=== PATIENT | female | born 1945 | race Caucasian/White ===

== ENCOUNTER → 2016-12-21 | Outpatient (CLI) | payer OTHER, MEDICARE | LOC: CIMAGING 12:17 | DX: Z12.31 Encounter for screening mammogram for malignant neoplasm of breast (principal) | CPT/HCPCS: G0202 ==

== ENCOUNTER → 2017-01-12 | Outpatient (CLI) | payer OTHER, MEDICARE | LOC: BHFA 13:15 | PROVIDERS: ATTEND Internal Medicine Cardiovascular Disease | DX: R94.31 Abnormal electrocardiogram [ECG] [EKG] (principal) ==

== ENCOUNTER → 2017-03-29 | Outpatient (CLI) | payer OTHER, MEDICARE | LOC: BHFA 11:00 | PROVIDERS: ATTEND Internal Medicine Cardiovascular Disease | DX: R00.0 Tachycardia, unspecified (principal); R06.02 Shortness of breath; I11.9 Hypertensive heart disease without heart failure; I43 Cardiomyopathy in diseases classified elsewhere ==

== ENCOUNTER → 2017-04-28 | Outpatient (CLI) | payer OTHER, MEDICARE | LOC: BHFA 14:30 | PROVIDERS: ATTEND Internal Medicine Cardiovascular Disease | DX: R00.0 Tachycardia, unspecified (principal) ==

== ENCOUNTER → 2017-10-06 | Outpatient (CLI) | payer OTHER, MEDICARE | LOC: BHFA 13:00 | PROVIDERS: ATTEND Internal Medicine Cardiovascular Disease | DX: R00.2 Palpitations (principal) | CPT/HCPCS: 78452; 93017; A9500 ==

== ENCOUNTER → 2018-01-21 | Outpatient (CLI) | payer OTHER, MEDICARE | LOC: CIMAGING 09:53 | PROVIDERS: ATTEND Family Medicine | DX: Z12.31 Encounter for screening mammogram for malignant neoplasm of breast (principal) ==

== ENCOUNTER 2018-02-05 18:13 | Emergency (ER) | payer OTHER, MEDICARE ==
[2018-02-05 18:26] VITALS: BP 149/101
[2018-02-05] MEDS ORDERED: ACETAMINOPHEN 325 MG TAB PO ONE (18:46)
--- NOTE | 2018-02-05 18:49 | EDPHY ---
H & P Time Seen by Provider: 02/05/18 18:32 HPI/ROS: CHIEF COMPLAINT: Head injury HISTORY OF PRESENT ILLNESS: Just before arrival tripped over family's dog and hit her head on the doorjamb. Did not lose consciousness but was slow to answer questions at triage per her recollection. Has a pretty bad headache. She also has peritoneal dialysis. Headache is right frontal started just after the fall. Does not radiate. Not better or worse with anything. REVIEW OF SYSTEMS: Eye: no change in vision ENT: no sore throat Cardiac: no chest pain or syncope Pulmonary: no cough or SOB Abdomen: no vomiting, diarrhea, abdominal pain Musculoskeletal: No back or neck pain Skin: no rash Neuro: No weakness or numbness in extremities, no neck pain, no trouble with speech or balance Constitutional: no fever : no urinary symptoms A comprehensive 10 point review of systems is otherwise negative aside from elements mentioned in the history of present illness. PAST MEDICAL HISTORY: Peritoneal dialysis from polycystic kidney disease, thyroid, hypertension Social history: Nonsmoker General Appearance: Alert and conversant, cooperative. Eyes: No scleral icterus. Pupils equal reactive extraocular motion intact ENT, Mouth: Normal mucous membranes. No hemotympanum. She does have a hematoma on the right parietal area just above her forehead. Respiratory: Normal respiratory effort, breath sounds equal, lungs are clear to auscultation. Cardiovascular: Regular rate and rhythm. Gastrointestinal: Abdomen is soft and non tender. Neurological: Alert, face symmetric, normal motor and sensory in extremities. Speech fluent and ambulatory without ataxia. Skin: No lacerations. Musculoskeletal: No spinal tenderness. Psychiatric: Not agitated. Emergency Department course/MDM: Tylenol 650. CT head for age and severe headache with platelet dysfunction because of peritoneal dialysis making her higher risk for intracranial hemorrhage. CT scanning discussed and consented. 1939: Negative noncontrast head CT per Dr. Ramos. Results discussed with patient, she is comfortable going home, her pain is adequately controlled. Smoking Status: Never smoked Constitutional: Initial Vital Signs Temperature (C) 36.9 C 02/05/18 18:20 Heart Rate 82 02/05/18 18:20 Respiratory Rate 18 02/05/18 18:20 Blood Pressure 149/101 H 02/05/18 18:20 O2 Sat (%) 99 02/05/18 18:20 O2 Delivery Mode Room Air Allergies/Adverse Reactions: Sulfa (Sulfonamide Antibiotics) Allergy (Mild, Verified 02/05/18 18:22) nausea NSAIDS (Non-Steroidal Anti-Inflamma Allergy (Verified 02/05/18 18:22) can't take because of kidney disease Home Medications: Medication Instructions Recorded Levothyroxine [Synthroid] 0 mcg PO DAILY06 11/06/15 Binder For Phosporus 02/05/18 Bp Med 02/05/18 Medical Decision Making - Diagnostics Imaging Results: Imaging Impressions Head CT 02/05/18 18:46 Impression: 1. Negative for intracranial posttraumatic sequela. 2. See above report for additional findings. Results called and discussed with OLIVIER LAWLER M.D. on 02/05/2018 at 19:36. Negative head [address] personally interpreted and discussed with [ ]. Imaging: Discussed imaging studies w/ call center rn Radiologist Differential Diagnosis: Differential diagnosis considered for head injury including but not limited to concussion, skull fracture, intraparenchymal contusion, subarachnoid, subdural and epidural hematoma. - Data Points Medications Given: Discontinued Medications Acetaminophen (Tylenol) 650 mg PO EDNOW ONE Stop: 02/05/18 18:47 Last Admin: 02/05/18 18:49 Dose: 650 mg Departure - Departure Disposition: Home, Routine, Self-Care Clinical Impression: Head injury Qualifiers: Encounter type: initial encounter Qualified Code(s): S09.90XA - Unspecified injury of head, initial encounter Concussion Qualifiers: Encounter type: initial encounter Loss of consciousness presence/duration: without LOC Qualified Code(s): S06.0X0A - Concussion without loss of consciousness, initial encounter Condition: Good Instructions: Concussion (ED), Head Injury (ED) Referrals: Luis Elizalde DO [Primary Care Provider] - As per Instructions
== END 2018-02-05 20:06 | disposition home or self-care (01) ==
DX: S06.0X0A Concussion without loss of consciousness, initial encounter (principal); I10 Essential (primary) hypertension; W01.198A Fall on same level from slipping, tripping and stumbling with subsequent striking against other object, initial encounter

== ENCOUNTER → 2018-03-31 | Outpatient (CLI) | payer OTHER, MEDICARE | LOC: BHFA 16:15 | PROVIDERS: ATTEND Internal Medicine Cardiovascular Disease | DX: R06.09 Other forms of dyspnea (principal) ==

== ENCOUNTER → 2018-11-24 | Outpatient (CLI) | payer OTHER, MEDICARE | LOC: BHFA 09:00 | PROVIDERS: ATTEND Internal Medicine Cardiovascular Disease | DX: Z76.82 Awaiting organ transplant status (principal) ==

== ENCOUNTER 2019-01-03 09:00 | Day surgery (SDC) | payer OTHER, MEDICARE | END 2019-01-03 14:45 | disposition home or self-care (01) | LOC: FCATH 09:00 ==

== ENCOUNTER → 2019-01-24 | Outpatient (CLI) | payer OTHER, MEDICARE | LOC: CIMAGING 14:41 ==